=== PATIENT | male | born 1985 | race African-American/Black ===

== ENCOUNTER 2025-04-24 11:24 | Emergency (ER) | payer MEDICAID ==
[~2025-04-24] VITALS: Ht 188 cm; Wt 63.6 kg
[2025-04-24 11:28] VITALS: TEMP 97.5
[2025-04-24 11:56] LABS: PLATELET COUNT (AUTO) 254 K/uL (150-450); RED BLOOD CELL COUNT(AUTO) 5.07 MIL/uL (4.50-5.90); RED CELL DISTRIBUTION WIDTH 13.8 % (11.5-14.5); WHITE BLOOD COUNT (AUTO) 7.6 K/uL (4.5-11.0)
[2025-04-24 12:05] LABS: CREATININE 0.64 mg/dL (0.60-1.30); GLUCOSE,RANDOM 121 mg/dL (70-110); SODIUM SERUM 140 mmol/L (136-145); UREA NITROGEN, BLOOD 9 mg/dL (7-18)
[2025-04-24 12:06] LABS: CALCIUM, TOTAL 8.3 mg/dL (8.8-10.5); GLOMERULAR FILTR. RATE CALC > 60 mL/min (>60)
[2025-04-24 12:09] LABS: TROPONIN I-HIGH SENSITIVITY 12 ng/L (<76)
[2025-04-24] MEDS: MAG HYDROX/ALUMINUM HYD/SIMETH 30 ML SUSPENSION UDCUP PO ONE (12:16)
[2025-04-24] MEDS: FAMOTIDINE 20 MG TABLET PO ONE (12:17)
[2025-04-24] MEDS: ONDANSETRON 4 MG TABLET PO ONE (12:17)
[2025-04-24] MEDS: ACETAMINOPHEN 500 MG TABLET PO ONE (12:17)
[2025-04-24] MEDS ORDERED: ACET-3385 PO (12:19)
[2025-04-24] MEDS ORDERED: OMEP-148 PO (12:19)
[2025-04-24 12:31] VITALS: BP 127/79; PULSE 81; RESP 18; O2SAT 98
== END 2025-04-24 13:56 | disposition home or self-care (01) ==
LOC: EMS 11:24
DX: R07.2 Precordial pain (principal); I10 Essential (primary) hypertension; Z98.890 Other specified postprocedural states
CPT/HCPCS: 99285; 71045; 80048; 84484; 85025; 36415; 93005; Q0162